=== PATIENT | female | born 1955 | race Caucasian/White ===

== ENCOUNTER → 2016-07-25 | Outpatient (CLI) | payer BC, OTHER ==
--- NOTE | 2016-07-25 12:05 | US ---
Complete Abdominal Ultrasound History: Bloating. Prior cholecystectomy. Comparison: None available. Findings: The liver is mildly diffusely echogenic with no focal hepatic masses. There is no intrahepa tic biliary dilatation. The common bile duct measures 6 mm and is normal. The gallbladder is surgical ly absent. The kidneys have normal echotexture and contour without hydronephrosis or contour deformin g masses. The right kidney measures 10.2 cm and the left kidney measures 10.0 cm. The spleen is gume l, measuring 8.4 cm. The visible aorta is normal caliber. The visible portions of the pancreas are no rmal with partial obscuration of the pancreatic head and tail by overlying bowel gas. The visible por tions of the IVC are normal. Impression: 1. No visible etiology for the patient's symptoms. 2. Probable mild fatty infiltration of the liver.
--- NOTE | 2016-07-25 12:11 | US ---
Transabdominal and Transvaginal Pelvic Ultrasound History: 60-year-old with postmenopausal spotting, history of breast cancer. Comparison: Pelvic ultrasound April 10, 2010. Findings: Transabdominal: The uterus measures 8.5 x 3.8 x 2.5 cm. The bladder is normal. Transvaginal: There is fluid in the endocervical canal. The endometrium is homogeneous and measures 1 mm. No fibroids are present. The left ovary measures 1.8 x 1.8 x 1.1 cm. The right ovary measures 2. 3 x 1.4 x 2.2 cm. No adnexal masses are identified. Normal arterial blood flow is documented to both ovaries by Doppler ultrasound. There is no free fluid. Impression: Fluid in the endocervical canal.
== END ==
LOC: FIMAGING 09:59
PROVIDERS: ATTEND Nurse Practitioner
DX: R93.8 Abnormal findings on diagnostic imaging of other specified body structures (principal); N95.0 Postmenopausal bleeding; Z85.3 Personal history of malignant neoplasm of breast

== ENCOUNTER → 2016-07-31 | Outpatient (CLI) | payer BC, OTHER | LOC: FIMAGING 09:05 | DX: Z12.31 Encounter for screening mammogram for malignant neoplasm of breast (principal); Z85.3 Personal history of malignant neoplasm of breast; Z80.3 Family history of malignant neoplasm of breast | CPT/HCPCS: G0202 ==

== ENCOUNTER → 2016-08-15 | Outpatient (CLI) | payer BC, OTHER ==
[~2016-08-15] MED LIST: IOPAMIDOL (ISOVUE-300) 100 ML BTL IV ONE
== END ==
LOC: FIMAGING 15:39
PROVIDERS: ATTEND Nurse Practitioner
DX: R10.84 Generalized abdominal pain (principal); R14.0 Abdominal distension (gaseous); R53.83 Other fatigue; Z90.49 Acquired absence of other specified parts of digestive tract
CPT/HCPCS: Q9967

== ENCOUNTER → 2016-08-24 | Outpatient (CLI) | payer BC | LOC: FIMAGING 09:34 | PROVIDERS: ATTEND Nurse Practitioner | DX: Z13.820 Encounter for screening for osteoporosis (principal); M85.80 Other specified disorders of bone density and structure, unspecified site; Z82.62 Family history of osteoporosis ==

== ENCOUNTER → 2017-08-07 | Outpatient (CLI) | payer BC | LOC: FIMAGING 11:50 | PROVIDERS: ATTEND Nurse Practitioner Obstetrics & Gynecology | DX: Z12.31 Encounter for screening mammogram for malignant neoplasm of breast (principal); Z85.3 Personal history of malignant neoplasm of breast; Z80.3 Family history of malignant neoplasm of breast ==

== ENCOUNTER → 2017-09-24 | Outpatient (CLI) | payer BC | LOC: FIMAGING 10:53 | PROVIDERS: ATTEND Nurse Practitioner | DX: M81.0 Age-related osteoporosis without current pathological fracture (principal); E07.9 Disorder of thyroid, unspecified; Z78.0 Asymptomatic menopausal state ==

== ENCOUNTER → 2018-07-20 | Outpatient (CLI) | payer BC | LOC: FIMAGING 10:39 | PROVIDERS: ATTEND Internal Medicine Endocrinology, Diabetes & Metabolism | DX: M16.12 Unilateral primary osteoarthritis, left hip (principal); M76.02 Gluteal tendinitis, left hip; M76.891 Other specified enthesopathies of right lower limb, excluding foot; M76.892 Other specified enthesopathies of left lower limb, excluding foot; M51.36 Other intervertebral disc degeneration, lumbar region ==

== ENCOUNTER → 2018-08-18 | Outpatient (CLI) | payer BC | LOC: FIMAGING 08:34 | PROVIDERS: ATTEND Nurse Practitioner | DX: Z12.31 Encounter for screening mammogram for malignant neoplasm of breast (principal); Z85.3 Personal history of malignant neoplasm of breast; Z80.3 Family history of malignant neoplasm of breast ==